=== PATIENT | female | born 1965 | race Caucasian/White ===

== ENCOUNTER 2018-08-30 07:58 | Day surgery (SDC) | payer OTHER ==
[~2018-08-30 07:58] MED LIST: ALL DAY ALLERGY10 M3 PO; CALCIUM600 MG PO; DIOVAN160 M1 PO; METFORMIN HCL500 M2 PO; NEURONTIN300 MG PO; OCUVITE EYE HE1 EACH PO; PLAQUENIL PO; PREDNISONE PO; PRILOS; PROVENTIL S1 ML/5 MG IH; SIMVASTATIN20 MG PO; SINGULAIR10 MG PO; SYNTHROID112 MCG PO; SYNTHROID137 MCG PO; ZOCOR20 MG PO
== END 2018-08-30 18:25 | disposition home or self-care (01) ==
LOC: CIR.AMB 07:58
DX: K64.8 Other hemorrhoids (principal); K64.4 Residual hemorrhoidal skin tags

== ENCOUNTER 2021-01-02 06:30 | Day surgery (SDC) | payer OTHER | END 2021-01-02 10:55 | disposition home or self-care (01) | LOC: AMB-ENDOS 06:30 | PROVIDERS: ATTEND Colon & Rectal Surgery | DX: K57.32 Diverticulitis of large intestine without perforation or abscess without bleeding (principal); K64.0 First degree hemorrhoids; Z20.822 Contact with and (suspected) exposure to COVID-19 ==